=== PATIENT | male | born 1935 | race Caucasian/White ===

== ENCOUNTER 2022-01-07 15:55 | Emergency (ER) | payer MEDICARE ==
[~2022-01-07] VITALS: Ht 180.3 cm; Wt 127.0 kg
[2022-01-07] MEDS ORDERED: TETANUS/DIPHTHERIA TOXOID [ADULT] 0.5 ML VIAL IM ONE ×2 (17:30→19:18)
[2022-01-07] MEDS ORDERED: DEXTROSE 50%-WATER 50 ML DISP.SYRIN IV ONE (19:21)
[2022-01-07 19:40] VITALS: BP 130/74
== END 2022-01-07 19:48 | disposition home or self-care (01) ==
LOC: EDH 15:55
DX: S00.81XA Abrasion of other part of head, initial encounter (principal); S00.31XA Abrasion of nose, initial encounter; S80.212A Abrasion, left knee, initial encounter; S80.211A Abrasion, right knee, initial encounter; S69.91XA Unspecified injury of right wrist, hand and finger(s), initial encounter; I11.0 Hypertensive heart disease with heart failure; E11.9 Type 2 diabetes mellitus without complications; J44.9 Chronic obstructive pulmonary disease, unspecified; E78.00 Pure hypercholesterolemia, unspecified; Z90.49 Acquired absence of other specified parts of digestive tract; W01.0XXA Fall on same level from slipping, tripping and stumbling without subsequent striking against object, initial encounter; Y93.01 Activity, walking, marching and hiking; Y92.481 Parking lot as the place of occurrence of the external cause; Y99.8 Other external cause status
CPT/HCPCS: 70450; 73110; 73130; 82948; 90471; 90714; 93005; 96374; 99285; J7070